=== PATIENT | female | born 1995 | race Hispanic/Latino ===

== ENCOUNTER 2021-10-26 22:14 | Emergency (ER) | payer OTHER, SELFPAY ==
[~2021-10-26] VITALS: Ht 170.2 cm; Wt 113.6 kg
[2021-10-26 22:14] VITALS: BP 155/85
[2021-10-27] MEDS ORDERED: ACETAMINOPHEN 500 MG TAB PO ONE (01:00)
[2021-10-27] MEDS ORDERED: diazePAM 5MG TABLET PO ONE (01:00)
[2021-10-27] MEDS ORDERED: LIDOCAINE 5% (LIDODERM) PATCH TD ONE (01:00)
[2021-10-27] MEDS ORDERED: CYCL7.5T32 PO (01:42)
[2021-10-27] MEDS ORDERED: LIDO5DIS41 TD (01:42)
[2021-10-27] MEDS ORDERED: **NOTE PATIENT COMMENT** MISC XX SCH (21:00)
== END 2021-10-27 02:00 | disposition home or self-care (01) ==
LOC: M ED 22:14
DX: M51.26 Other intervertebral disc displacement, lumbar region (principal)

== ENCOUNTER 2022-08-20 14:47 | Emergency (ER) | payer OTHER ==
[~2022-08-20] VITALS: Ht 170.2 cm; Wt 97.3 kg
[~2022-08-20 14:47] MED LIST: CYCL7.5T32 PO; LIDO5DIS41 TD
[2022-08-20] MEDS ORDERED: diazePAM 10MG/2ML SYRINGE IV ONE ×2 (16:40→17:45)
[2022-08-20] MEDS ORDERED: methylPREDNISolone 125MG 2ML VIAL IV ONE (16:40)
[2022-08-20] MEDS ORDERED: LIDOCAINE 5% (LIDODERM) PATCH TD ONE (16:40)
[2022-08-20] MEDS ORDERED: NAPR-837 PO (18:43)
[2022-08-20] MEDS ORDERED: MEDR4PAK PO (18:43)
[2022-08-20] MEDS ORDERED: HYDR-3713 PO (18:43)
[2022-08-20] MEDS ORDERED: METH-1165 PO (18:43)
[2022-08-20] MEDS ORDERED: ASPE4PAD TOP (18:43)
[2022-08-20 18:59] VITALS: BP 124/87
== END 2022-08-20 18:59 | disposition home or self-care (01) ==
LOC: M ED 14:47
DX: M54.17 Radiculopathy, lumbosacral region (principal); Z79.899 Other long term (current) drug therapy

== ENCOUNTER 2022-09-13 18:54 | Emergency (ER) | payer OTHER ==
[~2022-09-13] VITALS: Ht 170.2 cm; Wt 97.5 kg
[~2022-09-13 18:54] MED LIST changes: +ASPE4PAD TOP; +HYDR-3713 PO; +MEDR4PAK PO; +METH-1165 PO; +NAPR-837 PO
[2022-09-13 19:55] LABS: BASO % 0.2 % (0.0-1.0); EOS % 0.1 % (0.0-3.0); HEMATOCRIT 40.4 % (36.0-47.0); HEMOGLOBIN 13.4 g/dl (12.0-15.5); LYMPH # 1.1 10^3/uL (1.5-5.0); LYMPH % 12.4 % (24.0-44.0); MEAN CORPUSCULAR HEMOGLOBIN 28.8 pg (27.0-33.0); MEAN CORPUSCULAR HGB CONC 33.2 g/dl (32.0-36.5); MEAN CORPUSCULAR VOLUME 86.7 fl (80.0-96.0); MONO # 0.8 10^3/uL (0.0-0.8); MONO % 9.5 % (2.0-8.0); NEUTROPHILS # 6.6 10^3/uL (1.5-8.5); NEUTROPHILS % 77.3 % (36.0-66.0); PLATELET COUNT, AUTOMATED 253 10^3/uL (150-450); RED BLOOD COUNT 4.66 10^6/uL (4.00-5.40); WHITE BLOOD COUNT 8.6 10^3/uL (4.0-10.0)
[2022-09-13 19:58] LABS: APPEARANCE, URINE MANUAL CLEAR (CLEAR); COLOR, URINE MANUAL YELLOW (YELLOW); PH,URINE MAN 5.5 UNITS (5.0 - 7.0)
[2022-09-13 19:59] LABS: BILIRUBIN, URINE MANUAL NEGATIVE (NEGATIVE); BLOOD URINE MANUAL NEGATIVE (NEGATIVE); GLUCOSE, URINE (UA) MANUAL NEGATIVE (NEGATIVE); KETONE, URINE MANUAL 1+ mg/dL (NEGATIVE); LEUKOCYTE ESTERASE, URINE MAN NEGATIVE (NEGATIVE); NITRITE, URINE MANUAL NEGATIVE (NEGATIVE); PROTEIN, URINE MANUAL NEGATIVE (NEGATIVE); SPECIFIC GRAVITY,URINE MANUAL 1.015 (1.002-1.035); UROBILINOGEN, URINE MANUAL NORMAL (NORMAL)
[2022-09-13 20:20] LABS: LIPASE 25 U/L (12-53)
[2022-09-13 20:21] LABS: BLOOD UREA NITROGEN 10 MG/DL (9-23); CALCIUM LEVEL 9.4 MG/DL (8.5-10.1); CARBON DIOXIDE LEVEL 26 MMOL/L (20-31); CHLORIDE LEVEL 99 MMOL/L (98-107); CREATININE FOR GFR 0.72 MG/DL (0.55-1.30); GLOMERULAR FILTRATION RATE > 60.0 (>60); GLUCOSE, FASTING 92 MG/DL (60-100); SODIUM LEVEL 135 MMOL/L (136-145)
[2022-09-14 02:13] VITALS: BP 118/65
== END 2022-09-14 02:15 | disposition home or self-care (01) ==
LOC: M ED 18:54
DX: T62.91XA Toxic effect of unspecified noxious substance eaten as food, accidental (unintentional), initial encounter (principal); Z79.899 Other long term (current) drug therapy

== ENCOUNTER → 2022-09-29 | Outpatient (CLI) | payer OTHER | LOC: M PLAIMG 15:32 | PROVIDERS: ATTEND Orthopaedic Surgery | DX: M51.16 Intervertebral disc disorders with radiculopathy, lumbar region (principal) ==

== ENCOUNTER 2022-12-06 18:26 | Emergency (ER) | payer OTHER ==
[~2022-12-06] VITALS: Ht 170.2 cm; Wt 101.2 kg
[2022-12-06] MEDS ORDERED: ERGO500029 (18:36)
[2022-12-06] MEDS ORDERED: FAMOTIDINE 20MG/2ML VIAL IVP ONE (18:50)
[2022-12-06] MEDS ORDERED: methylPREDNISolone 125MG 2ML VIAL IV ONE (18:50)
[2022-12-06] MEDS ORDERED: diphenhydrAMINE 50MG/ML VIAL IV ONE (18:50)
[2022-12-06] MEDS ORDERED: NS 1,000 ML IV ONE (18:50)
[2022-12-06 20:30] VITALS: BP 144/67
[2022-12-06] MEDS ORDERED: PEPC1TAB5 PO (20:48)
== END 2022-12-06 21:09 | disposition home or self-care (01) ==
LOC: M ED 18:26
DX: T78.04XA Anaphylactic reaction due to fruits and vegetables, initial encounter (principal); G43.909 Migraine, unspecified, not intractable, without status migrainosus; L29.9 Pruritus, unspecified
CPT/HCPCS: 93041; 94760; 96374; 96375; 99284; J1200; J2930; S0028

== ENCOUNTER 2022-12-14 09:27 | Emergency (ER) | payer OTHER ==
[~2022-12-14] VITALS: Ht 170.2 cm; Wt 98.7 kg
[~2022-12-14 09:27] MED LIST changes: +ERGO500029; +PEPC1TAB5 PO
[2022-12-14] MEDS ORDERED: diphenhydrAMINE 50MG/ML VIAL IV STA (10:13)
[2022-12-14] MEDS ORDERED: METOCLOPRAMIDE INJ 10MG/2ML VIAL IV ONE (10:15)
[2022-12-14] MEDS ORDERED: NS 1,000 ML IV ONE (10:15)
[2022-12-14] MEDS ORDERED: ISOVUE-370 76% 100ML VIAL As Ordered ONE (10:51)
[2022-12-14] MEDS ORDERED: KETOROLAC 30 MG/ML 1ML VIAL IV ONE (13:10)
[2022-12-14] MEDS ORDERED: diazePAM 10MG/2ML SYRINGE IV ONE (13:10)
[2022-12-14 15:32] VITALS: BP 135/78
== END 2022-12-14 15:34 | disposition home or self-care (01) ==
LOC: EDBD 09:27 → M ED 09:27
DX: G43.809 Other migraine, not intractable, without status migrainosus (principal); M19.90 Unspecified osteoarthritis, unspecified site; E55.9 Vitamin D deficiency, unspecified; Z79.899 Other long term (current) drug therapy
CPT/HCPCS: 70450; 70496; 70498; 80047; 84702; 96374; 96375; 99284; J1200; J1885; J2765; J3360; Q9967

== ENCOUNTER 2023-03-18 20:57 | Emergency (ER) | payer OTHER ==
[~2023-03-18] VITALS: Ht 170.2 cm; Wt 104.4 kg
[2023-03-18 20:57] VITALS: BP 176/90; TEMP 97.9; O2SAT 100
== END 2023-03-18 22:05 | disposition left against medical advice (07) ==
LOC: M ED 20:57
DX: R10.9 Unspecified abdominal pain (principal); Z53.21 Procedure and treatment not carried out due to patient leaving prior to being seen by health care provider

== ENCOUNTER → 2023-05-29 | Outpatient (CLI) | payer OTHER ==
[~2023-05-29] MED LIST changes: +NEUR300C PO; +PERC5TAB12 PO
== END ==
LOC: M PLAIMG 14:24
PROVIDERS: ATTEND Orthopaedic Surgery
DX: M51.36 Other intervertebral disc degeneration, lumbar region (principal); M47.896 Other spondylosis, lumbar region; M48.061 Spinal stenosis, lumbar region without neurogenic claudication

== ENCOUNTER → 2023-06-08 | Outpatient (CLI) | payer OTHER | LOC: M PLAIMG 10:59 | PROVIDERS: ATTEND Orthopaedic Surgery | DX: M51.36 Other intervertebral disc degeneration, lumbar region (principal) ==

== ENCOUNTER → 2023-06-16 | Outpatient (CLI) | payer OTHER | LOC: M PLAIMG 14:22 | PROVIDERS: ATTEND Orthopaedic Surgery | DX: M50.223 Other cervical disc displacement at C6-C7 level (principal); M51.24 Other intervertebral disc displacement, thoracic region; M51.36 Other intervertebral disc degeneration, lumbar region ==

== ENCOUNTER 2023-07-10 21:40 | Emergency (ER) | payer OTHER ==
[~2023-07-10] VITALS: Ht 170.2 cm; Wt 104.5 kg
[2023-07-10 22:13] LABS: BASO % 0.3 % (0.0-1.0); EOS # 0.1 10^3/uL (0.0-0.5); EOS % 0.8 % (0.0-3.0); HEMATOCRIT 38.2 % (36.0-47.0); LYMPH # 2.4 10^3/uL (1.5-5.0); LYMPH % 25.4 % (24.0-44.0); MEAN CORPUSCULAR HEMOGLOBIN 30.4 pg (27.0-33.0); MEAN CORPUSCULAR VOLUME 89.3 fl (80.0-96.0); MONO # 0.9 10^3/uL (0.0-0.8); MONO % 9.1 % (2.0-8.0); NEUTROPHILS # 6.1 10^3/uL (1.5-8.5); NEUTROPHILS % 64.1 % (36.0-66.0); PLATELET COUNT, AUTOMATED 255 10^3/uL (150-450); RED BLOOD COUNT 4.28 10^6/uL (4.00-5.40); WHITE BLOOD COUNT 9.6 10^3/uL (4.0-10.0)
[2023-07-10 22:35] LABS: CK-MB VALUE MASS < 1.0 NG/ML (<3.6)
[2023-07-10 22:45] LABS: CPK CREATINE PHOSPHOKINASE 86 U/L (34-145); MB/CK RELATIVE INDEX 1.16 (< OR =4)
[2023-07-10 23:23] LABS: HCG, SERUM QUALITATIVE NEGATIVE (NEGATIVE); LIPASE 26 U/L (12-53)
[2023-07-10 23:26] LABS: ALBUMIN 4.1 G/DL (3.2-5.2); ALKALINE PHOSPHATASE 107 U/L (46-116); ALT/SGPT 31 U/L (7.0-40); AST/SGOT 26 U/L (<34); BILIRUBIN,DIRECT < 0.1 MG/DL (<0.4); BILIRUBIN,TOTAL 0.3 MG/DL (0.3-1.2); BLOOD UREA NITROGEN 11 MG/DL (9-23); CALCIUM LEVEL 8.8 MG/DL (8.5-10.1); CARBON DIOXIDE LEVEL 21 MMOL/L (20-31); CHLORIDE LEVEL 108 MMOL/L (98-107); CREATININE FOR GFR 0.61 MG/DL (0.55-1.30); GLOMERULAR FILTRATION RATE > 60.0 (>60); GLUCOSE, FASTING 124 MG/DL (60-100); SODIUM LEVEL 141 MMOL/L (136-145); TOTAL PROTEIN 7.5 G/DL (5.7-8.2)
[2023-07-10] MEDS ORDERED: KETOROLAC 30 MG/ML 1ML VIAL IV ONE (23:45)
[2023-07-11 00:12] LABS: CK-MB VALUE MASS < 1.0 NG/ML (<3.6)
[2023-07-11 00:20] LABS: CPK CREATINE PHOSPHOKINASE 85 U/L (34-145); MB/CK RELATIVE INDEX 1.17 (< OR =4)
[2023-07-11] MEDS ORDERED: MAALOX 30 ML SUSP *UDC PO ONE (00:50)
[2023-07-11] MEDS ORDERED: HYOSCYAMINE SULFATE 0.125 MG SUBL TABLET PO ONE (00:50)
[2023-07-11] MEDS ORDERED: CALCIUM CARBONATE 500 MG CHEW U/D PO ONE (00:50)
[2023-07-11 01:53] VITALS: BP 134/79; TEMP 98.5; O2SAT 99
== END 2023-07-11 01:56 | disposition home or self-care (01) ==
LOC: EDBD 21:40 → M ED 21:40
DX: R12 Heartburn (principal); Z79.899 Other long term (current) drug therapy
CPT/HCPCS: 71045; 80048; 80076; 82550; 82553; 83690; 84484; 84702; 84703; 85025; 93005; 93041; 94760; 96374; 99284; J1885